=== PATIENT | male | born 1955 | race Caucasian/White ===

== ENCOUNTER 2016-04-02 09:30 | Outpatient (CLI) | payer OTHER ==
--- NOTE | 2016-04-02 10:23 | DIAGNOSTIC IMAGING REPORT ---
PROCEDURE: XR CHEST 2 VIEW INDICATION: PRE OP TECHNIQUE: PA and lateral views. COMPARISON: Chest 06/05/2014 FINDINGS: The lungs are clear. Left subclavian pacemaker/defibrillator. Mild cardiomegaly. Mediastinum and pulmonary vascularity are normal. Bony thorax is unremarkable. IMPRESSION: 1. Mild cardiomegaly 2. Pacemaker .
[2016-04-17] MEDS ORDERED: NOVOLOG PE100 UNITS/ SC (17:58)
[2016-04-17] MEDS ORDERED: METFORMIN HCL500 MG PO (17:58)
[2016-04-17] MEDS ORDERED: LEVEMIR FL100 UNIT/M SC (17:58)
[2016-04-17] MEDS ORDERED: TIZANIDINE HCL4 M1 PO (17:59)
[2016-04-17] MEDS ORDERED: PERCOCET1 TA1 PO (18:00)
[2016-04-17] MEDS ORDERED: PRADAXA150 MG PO (18:01)
[2016-04-17] MEDS ORDERED: ADVAIR DISKU1 INH (18:02)
[2016-04-17] MEDS ORDERED: ALBUTEROL HFA60 DOSE IN (18:03)
[2016-04-17] MEDS ORDERED: CARVEDILOL25 MG PO (18:03)
[2016-04-17] MEDS ORDERED: TAMSULOSIN HCL0.4 MG PO (18:03)
[2016-04-17] MEDS ORDERED: FENOFIBRATE160 MG PO (18:03)
[2016-04-17] MEDS ORDERED: DIGOXIN0.125 MG PO (18:04)
[2016-04-17] MEDS ORDERED: ATORVASTATIN CA40 MG PO (18:04)
[2016-04-17] MEDS ORDERED: LISINOPRIL10 MG PO (18:06)
== END 2016-04-02 23:00 ==
LOC: RT SRH 09:30 → LAB SRH 09:30 → RT SRH 23:00
DX: Z01.810 Encounter for preprocedural cardiovascular examination (principal); Z01.811 Encounter for preprocedural respiratory examination; Z01.812 Encounter for preprocedural laboratory examination; M65.341 Trigger finger, right ring finger; Z95.0 Presence of cardiac pacemaker
CPT/HCPCS: 90004; 90074; 90100; 91643; 95059

== ENCOUNTER 2016-04-22 08:24 | Day surgery (SDC) | payer OTHER ==
--- NOTE | 2016-04-02 10:06 | HISTORY AND PHYSICAL ---
ADMITTED: 04/22/2016 CHIEF COMPLAINT: 1. Right hand pain HISTORY OF PRESENT ILLNESS: The patient had triggering of the right ring finger and it has gotten worse as time goes on. He has marked pain over the flexor tendon sheath at the level of the A1 angela, and the finger catches and you need to pull on it with the other hand just to get it straightened out, and he is being admitted for trigger finger release. MEDICAL/SURGICAL HISTORY: The patient's past history is positive in that he does suffer from hypertension and sleep apnea. He has hypercholesterolemia. He has some asthma and diabetes. He also has had some problems with his bladder and suffers from incontinence and urinary frequency as well, and has some prostatic hypertrophy. The patient has had previous surgery for placement of pacemaker on 3 separate occasions: in 2005, 2009, and 2013. He also had a stent placed in his heart in 2007. He had a lipoma removed from his hand. He denies AL, CVA, peptic ulcer disease, hepatitis, AIDS, cancer, tuberculosis. MEDICATIONS: 1. ALLERGIES: 1. SOCIAL HISTORY: Positive for the smoking. He said he has been cutting back. He is down to about a quarter to half pack a day and an occasional cigar. FAMILY HISTORY: Noncontributory. REVIEW OF SYSTEMS: Positive in that he does have some wheezing and some occasional congestion in his lungs, but he denies any shortness of breath, cough, congestion, fever or chills at this point in time. Neurologically, he does not suffer from any loss of consciousness or seizure disorder. Denies any problem with vision or hearing or balance. Gastroenterology: He has not had any nausea, vomiting, diarrhea, or blood in the stools. Genitourinary: He has not had any hematuria, but he does have some frequency of urination and nocturia as well. Musculoskeletal: He says he has had some left groin pain, but had an ultrasound done; they did not find anything wrong. He says that started with a twisting injury to the left leg about 3 weeks ago. It is improving slowly, and again did have an examination and no significant abnormality was found. He also suffers from chronic low back pain, and he has pain in his right hand associated with the trigger finger. The patient was counseled with respect to the back pain, on the importance of losing weight, and also just for his general health. He is obese, and I did spend some time talking with him about losing weight and trying to reduce as much as possible and how that might help his chronic back pain. I encouraged him to go out and start walking and also to give up the cigarette smoking. He agrees and certainly is interested to try. PHYSICAL EXAMINATION: HEENT: Shows the head to be normocephalic and atraumatic. His eyes are clear. His hearing is grossly normal. Mouth and posterior oropharynx are clear. His maxillary teeth are absent. He does have some of the front mandibular teeth left, but most of his teeth are gone. The teeth that are remaining are in fair repair. His tongue is midline. NECK: Without jugular venous distention. CHEST: Symmetrical. HEART: Regular rate and rhythm without murmurs heard. LUNGS: Show some rhonchi throughout, and there is some mild wheezing, particularly on the right lower lobe. ABDOMEN: Obese. He does have active bowel sounds that are present. EXTREMITIES: In the right hand, he has marked tenderness right over the A1 angela, and I did not have him flex the finger, because every time he does it catches and he says it is really painful for him to try and straighten it out. He does have light touch sensation present distally, and his capillary refilling is less than 1 second. The fingers are warm and pink, and there is no edema that is present. He does not have any open wounds or drainage at all. IMPRESSION: 1. Trigger finger of the right ring finger of the right hand. PLAN: The plan will be for trigger finger release. I showed him where the incision would be, explained the process for release. I also explained the risk of stiffness, of continued pain, of recurrence, of neurovascular injury with numbness of the finger, and anesthesia complications. He understands and accepts, and we will plan to do the surgery 04/22/2016, barring unforeseen complication or problem.
[~2016-04-22 08:24] MED LIST: ADVAIR DISKU1 INH; ALBUTEROL HFA60 DOSE IN; ATORVASTATIN CA40 MG PO; CARVEDILOL25 MG PO; DIGOXIN0.125 MG PO; FENOFIBRATE160 MG PO; LEVEMIR FL100 UNIT/M SC; LISINOPRIL10 MG PO; METFORMIN HCL500 MG PO; NOVOLOG PE100 UNITS/ SC; PERCOCET1 TA1 PO; PRADAXA150 MG PO; TAMSULOSIN HCL0.4 MG PO; TIZANIDINE HCL4 M1 PO
--- NOTE | 2016-04-22 09:27 | NUR ---
PREPO INSTRUCTIONS GIVEN TO PATIENT. QUESTIONS ANSWERED. PATIENT VERBALIZES UNDERSTANDING. CONSENT CONFIRMED. EXTRIMITY MARKED BY PATIENT. BS 161. PATIENT RESTING COMFORTABLY. KB
--- NOTE | 2016-04-22 11:45 | Provider's Discharge Care Plan ---
Problem, Goal, Plan Problem List 1. Trigger finger of right hand
--- NOTE | 2016-04-22 11:45 | Provider's Discharge Care Plan ---
Problem, Goal, Plan Problem List 1. Trigger finger of right hand
[2016-04-22] MEDS ORDERED: PERCOCET1 TA1 PO (11:47)
--- NOTE | 2016-04-22 11:56 | NUR ---
PT RECEIVED TO PACU AWAKE, EXCITED AND COMFORTABLE. VSS RIGHT HAND ELEVATED ON PILLOW AND ICE UNDER RIGHT HAND. PT CAUTIONED TO NEVER LEAVE ICE ON FOR LONGER THAN 20 MINUTES. PT NOW CALMER AND COMFORTABLE.
--- NOTE | 2016-04-22 12:14 | NUR ---
PT CALM AND COMFORTABLE. VSS.
--- NOTE | 2016-04-22 14:16 | OPERATIVE REPORT ---
DATE OF SURGERY: 04/22/2016 SURGEON: VENESSA CALIX MD PREOPERATIVE DIAGNOSIS: 1. Trigger right ring finger POSTOPERATIVE DIAGNOSIS: 1. Trigger right ring finger PROCEDURE PERFORMED: 1. The operation proposed is release of the triggering of the right ring finger , and the operation performed is release of the triggering of the right ring finger ESTIMATED BLOOD LOSS: Probably 3 mL at most. COMPLICATIONS: None. PATHOLOGY SPECIMEN: None. SURGICAL TECHNIQUE: The patient was taken to the operating room, was given general anesthetic along with some local at the incision site. A slightly oblique incision was made directly over the A1 angela to the right ring finger. This was done after exsanguinating the limb and inflating the tourniquet, and after the usual sterile prep and drape. We carried the incision down through the subcutaneous tissue. There was quite a bit of subcutaneous fat, and I bluntly dissected that away, exposing the A1 angela and then sharply opened it longitudinally using a 15 blade knife and tenotomy scissors. With this, we were able to free up the tendons and allow free passage of the flexor tendons. The patient had the tourniquet deflated. There were a couple small superficial bleeders coagulated with the Bovie electrocautery. It was closed with a single subcuticular 3-0 Polysorb suture, dressed with Xeroform and fluffs, and wrapped with a Rajinder and Honorio bandage loosely applied. He was then awakened and taken to the recovery room in stable condition.
--- NOTE | 2016-04-22 14:48 | NUR ---
PATIENT RETURNED TO THE FLOOR AWAKE AND TALKING. VSS. UP IN ROOM INDEPENDENTLY. DENIES PAIN. CMS INTACT. PO OFFERED AND TOLERATED. DISCHARGE INSTRUCTIONS GIVEN TO PATIENT. QUESTIONS ANSWERED. PATIENT VERBALIZES UNDERSTANDING. DISCHARGED HOME WITH A FRIEND. KB
== END 2016-04-22 13:15 | disposition home or self-care (01) ==
LOC: OR SRH 08:24 → SCU SRH 08:32
PROVIDERS: Orthopaedic Surgery
PROC: 0LN70ZZ Release Right Hand Tendon, Open Approach (ICD-10-PCS; principal; 2016-04-22 10:15)
DX: M65.341 Trigger finger, right ring finger (principal); J44.9 Chronic obstructive pulmonary disease, unspecified; Z72.0 Tobacco use; E11.9 Type 2 diabetes mellitus without complications; Z79.4 Long term (current) use of insulin
CPT/HCPCS: 29229; 29240; 50004; 60001; 70002; 80011; 80575; 83773; 84038